=== PATIENT | male | born 1940 | race Caucasian/White ===

== ENCOUNTER 2016-07-31 12:48 | Outpatient (RCR) | payer MEDICARE, OTHER ==
--- OUTSIDE RECORDS SUMMARY | 2016-05-17 09:25 | XMS REPORT | Continuity of Care Document ---
Author Author [facility] Organization [facility] Address Unknown Phone Unavailable Care Team Providers Care Tower Erector Name Role Phone ABDIEL MORGAN PCP Insurance Providers Payer Name Policy Number Subscriber Name Relationship [employer] [id number] Paulino Murray 19 Self / Same As Patient Advance Directives Directive Response Recorded Date/Time Advance Directives No 05/02/16 9:31am Health Care Power of Ream Cutter No 05/02/16 9:31am Organ Donor No 05/02/16 9:31am Problems Active Problems Medical Problem Onset Date Status Atypical chest pain Unknown Acute Fall Unknown Acute Fracture of femur, right, closed Unknown Acute Generalized weakness Unknown Acute Labile blood glucose Unknown Acute Renal failure Unknown Acute Urinary tract infection Unknown Acute Medications Current Home Medications Medication Dose Units Route Directions Days/Qty Instructions Start Date Ipratropium/Albuterol Sulfate (Duoneb) 3 Ml 3 Ml Inhalation Every 6 Hours as needed for Shortness Of Breath 04/11/16 Albuterol/Ipratropium 4 Gm 1 Puff Inhalation Four Times Daily as needed for Shortness Of Breath 04/11/16 Atorvastatin Calcium 80 Mg 80 Mg Oral Bedtime 04/11/16 Carboxymethylcellulose Sodium 15 Ml 1 Drop Each Eye Four Times Daily as needed for Dry Eyes LAST FILLED 08/28/15 04/11/16 Doxazosin Mesylate 8 Mg 8 Mg Oral Bedtime 04/11/16 Gabapentin 600 Mg 600 Mg Oral Three Times A Day 04/11/16 Nicotine Polacrilex 4 Mg 4 Mg Buccal Four Times Daily as needed for Nicotine 04/11/16 Polyethylene Glycol 3350 17 Gm 17 Gm Oral Daily as needed for Constipation 04/11/16 Ranitidine Hcl (Ranitidine) 150 Mg 150 Mg Oral Daily 04/11/16 Insulin Aspart 100 Unit/1 Ml 5 Unit Sub-Q Before Meals 04/11/16 Clopidogrel Bisulfate 75 Mg 75 Mg Oral Daily 04/23/16 Sertraline Hcl 50 Mg 25 Mg Oral Daily TAKES 1/2 OF A (50 MG) TABLET Cyclobenzaprine Hcl 10 Mg 5 Mg Oral Three Times A Day as needed for Muscle Spasms 90 05/03/16 Lisinopril 20 Mg 20 Mg Oral Daily 30 05/03/16 Oxycodone Hcl/Acetaminophen 1 Each 1 Tab Oral Every 6 Hours as needed for Pain 60 05/03/16 Alprazolam 0.5 Mg 1 Mg Oral Every 8HRS as needed for Anxiety 60 Sennosides/Docusate Sodium 1 Each 1 Ea Oral Twice A Day 60 05/03/16 Insulin Determir 1,000 Units/10 Ml 20 Unit Sub-Q Bedtime 1 05/03/16 Silver 480 Ml 0 Oz Topical Daily 1 05/03/16 Insulin Aspart 100 Unit/1 Ml 0 Unit Subcutaneously Before Meals And At Bedtime 1 05/03/16 Past Home Medications Medication Directions Ordered Status Alprazolam 1 Mg Tablet, 1 Mg Oral Bedtime 04/11/16 Discontinued Cyclobenzaprine Hcl 10 Mg Tablet, 10 Mg Oral Three Times A Day as needed for Muscle Spasms 04/11/16 Discontinued Furosemide 20 Mg Tablet, 20 Mg Oral Daily 04/11/16 Discontinued Hydrochlorothiazide 25 Mg Tablet, 25 Mg Oral Daily 04/11/16 Discontinued Ketotifen Fumarate 5 Ml Drops, 1 Drop Each Eye Twice A Day as needed for Allergy Eyes 04/11/16 Discontinued Lidocaine 5 Gm Cream..g., Topical Every 6 Hours as needed for Pain Discontinued Lisinopril 20 Mg Tablet, 10 Mg Oral Daily 04/11/16 Discontinued Nicotine 1 Each Patch.td24, 21 Mg Transderm Daily 04/11/16 Discontinued Oxycodone Hcl 10 Mg Tablet, 10 Mg Oral Every 6 Hours as needed for Pain 04/11 Discontinued Sertraline Hcl 50 Mg Tablet, 50 Mg Oral Daily 04/11/16 Discontinued Aspirin 81 Mg Tablet.dr, 81 Mg Oral Daily 04/11/16 Discontinued Sildenafil Citrate 50 Mg Tablet, 25 Mg Oral As Directed as needed for Erectile Dysfunction 04/11/16 Discontinued Trazodone Hcl 50 Mg Tablet, 75 Mg Oral Bedtime as needed for Sleep 04/11/16 Discontinued Valacyclovir Hcl 500 Mg Tablet, 500 Mg Oral Twice A Day as needed for Breakout 04/11/16 Discontinued Insulin Glargine,Hum.rec.anlog 100 Unit/1 Ml Vial, 15 Unit Sub-Q Bedtime 08/26 Discontinued Oxycodone Hcl 10 Mg Tablet, 10 Mg Oral Every 6 Hours as needed for Pain 04/12 Discontinued Fluconazole 100 Mg Tablet, 100 Mg Oral Daily 04/12/16 Discontinued Alprazolam 1 Mg Tablet, 1 Mg Oral Give Every 6 Hr On Schedule as needed for Anxiety 04/12/16 Discontinued Amoxicillin/Potassium Clav 1 Each Tablet, 1 Each Oral Twice A Day 04/12/16 Discontinued Oxycodone Hcl 10 Mg Tablet, 10 Mg Oral Every 6 Hours 04/23/16 Discontinued Finasteride 5 Mg Tablet, 5 Mg Oral Daily 04/23/16 Discontinued Alprazolam 1 Mg Tablet, 1 Mg Oral Every 6 Hours as needed for Anxiety Discontinued Alprazolam 1 Mg Tablet, 0.5 Mg Oral Three Times A Day as needed for Anxiety 04/25/16 Discontinued Social History Social History Problem Response Recorded Date/Time Recent Foreign Travel No 05/06/2016 1:10pm Type Used Cigarettes 04/26/2016 8:40am Recent Hopitalizations Yes 04/22/2016 10:30pm Hospital Discharge Instructions No hospital discharge instructions. Plan of Care Prescriptions See Medication Section Functional Status No functional status results. Allergies, Adverse Reactions, Alerts Allergen Type Severity Reaction Status Last Updated Finasteride Allergy Unknown Active 04/10/16 metformin ([id number]) Allergy Unknown Active 04/10/16 Immunizations Name Given Type FLU TRIvalent 5 years - Adult 04/27/16 Administered Vital Signs Acute Vital Signs Vital Response Date/Time Temperature (Fahrenheit) 97.9 degrees F (97.6 - 99.5) 05/03/2016 4:43am Temperature (Calculated Celsius) 36.45587 degrees C (36.4 - 37.5) 05/03/2016 4:43am Temperature Source Temporal 05/03/2016 4:43am Pulse Rate (adult) 100 bpm (60 - 90) 05/03/2016 4:43am Respiratory Rate 18 bpm (12 - 24) 05/03/2016 4:43am O2 Sat by Pulse Oximetry 93 % (88 - 100) 05/03/2016 7:49am Blood Pressure 163/79 mm Hg 05/03/2016 4:43am Blood Pressure Mean 107 mm Hg 05/03/2016 4:43am Pain Numeric Pain Scale 4 05/03/2016 9:09am Height (Feet) 5 feet 04/29/2016 3:14pm Height (Inches) 7.00 inches 04/29/2016 3:14pm Height (Calculated Centimeters) 170.552398 cm 04/29/2016 3:14pm Weight (Pounds) 160 pounds 04/29/2016 3:14pm Weight (Ounces) 3.0 oz 04/29/2016 3:14pm Weight (Calculated Grams) 06895.83 gm 04/29/2016 3:14pm Weight (Calculated Kilograms) 72.923600 kilograms 04/29/2016 3:14pm Calculated BMI 25.1 04/29/2016 3:14pm Capillary Refill Capillary Refill Less Than 3 Seconds 04/23/2016 9:05pm Results Laboratory Results Test Name Result Units Flags Reference Collection Date/Time Result Date/ Time Comments White Blood Count 14.0 10^3/uL H 4.3-11.0 04/25/2016 3:45pm 04/26/2016 10 :54am White Blood Count 14.0 X 10^3 H 4.3-11.0 04/25/2016 3:55pm 04/26/2016 9: 11am Red Blood Count 3.53 10^6/uL L 4.35-5.85 04/25/2016 3:45pm 04/26/2016 10: 54am Hemoglobin 9.8 G/DL #L 13.3-17.7 04/25/2016 3:45pm 04/26/2016 10:54am Hematocrit 31 % L 40-54 04/25/2016 3:45pm 04/26/2016 10:54am Mean Corpuscular Volume 86 FL 80-99 04/25/2016 3:45pm 04/26/2016 10: 54am Mean Corpuscular Hemoglobin 28 PG 25-34 04/25/2016 3:45pm 04/26/2016 10 :54am Mean Corpuscular Hemoglobin Concent 32 G/DL 32-36 04/25/2016 3:45pm 10:54am Red Cell Distribution Width 50.3 % H 10.0-14.5 04/25/2016 3:45pm 2015 10:54am Platelet Count 256 10^3/uL 130-400 04/25/2016 3:45pm 04/26/2016 10: 54am Mean Platelet Volume 10.3 FL 7.4-10.4 04/25/2016 3:45pm 04/26/2016 10: 54am Neutrophils (%) (Auto) 72 % 42-75 04/26/2016 5:3204/26/2016 10:42am Lymphocytes (%) (Auto) 19 % 12-44 04/26/2016 5:32am 04/26/2016 10:42am Monocytes (%) (Auto) 7 % 0-12 04/26/2016 5:3204/26/2016 10:42am Eosinophils (%) (Auto) 1 % 0-10 04/26/2016 5:3204/26/2016 10:42am Basophils (%) (Auto) 0 % 0-10 04/26/2016 5:3204/26/2016 10:42am Neutrophils # (Auto) 11.2 X 10^3 H 1.8-7.8 04/26/2016 5:32am 04/26/2016 10:42am Lymphocytes # (Auto) 3.0 X 10^3 1.0-4.0 04/26/2016 5:3204/26/2016 10 :42am Monocytes # (Auto) 1.1 X 10^3 H 0.0-1.0 04/26/2016 5:32am 04/26/2016 10: 42am Eosinophils # (Auto) 0.1 10^3/uL 0.0-0.3 04/26/2016 5:3204/26/2016 10:42am Basophils # (Auto) 0.0 10^3/uL 0.0-0.1 04/26/2016 5:32am 04/26/2016 10: 42am Smear Scan MAN DIFF COMPLETED BY [facility]ING [facility]. 04/26/2016 5:32am 04/26/2016 10:44am Neutrophils % (Manual) 72 % 04/26/2016 5:32am 04/26/2016 10:44am Band Neutrophils 0 % 04/22/2016 9:30pm 04/22/2016 10:10pm Lymphocytes % (Manual) 21 % 04/26/2016 5:32am 04/26/2016 10:44am Monocytes % (Manual) 7 % 04/26/2016 5:32am 04/26/2016 10:44am Eosinophils % (Manual) 4 % 04/22/2016 9:30pm 04/22/2016 10:10pm Basophils % (Manual) 0 % 04/22/2016 9:30pm 04/22/2016 10:10pm Blood Morphology Comment NORMAL 04/22/2016 9:30pm 04/22/2016 10: 10pm Polychromasia SLIGHT 04/26/2016 5:32am 04/26/2016 10:44am Hypochromasia SLIGHT 04/26/2016 5:32am 04/26/2016 10:44am Poikilocytosis SLIGHT 04/26/2016 5:32am 04/26/2016 10:44am Anisocytosis SLIGHT 04/26/2016 5:32am 04/26/2016 10:44am Macrocytosis SLIGHT 04/26/2016 5:32am 04/26/2016 10:44am Prothrombin Time 13.8 SEC 12.2-14.7 04/22/2016 9:30pm 04/22/2016 9: 56pm INR Comment 1.1 0.8-1.4 04/22/2016 9:30pm 04/22/2016 9:56pm INTERPRETIVE DATA SUGGESTED THERAPEUTIC RANGE FOR INR'S: VENOUS THROMBOSIS, PULMONARY EMBOLISM, OR PREVENTION OF SYSTEMIC EMBOLISM (EG. IN ATRIAL FIBRILLATION): 2.0 - 3.0 MECHANICAL PROSTHETIC HEART VALVES: 2.5 - 3.5* *NOTE: INR'S UP TO 4.5 MAY BE NECESSARY IN SELECTED GROUPS OF HIGH RISK PATIENTS. [employer] CONSENSUS CONFERENCE ON ANTITHROMBOTIC THERAPY (2000). Activated Partial Thromboplast Time 32 SEC 24-35 04/22/2016 9:30pm 07/2016 9:56pm Sodium Level 138 MMOL/L 135-145 04/26/2016 5:32am 04/26/2016 10:23am Potassium Level 3.9 MMOL/L 3.6-5.0 04/26/2016 5:32am 04/26/2016 10: 23am Chloride Level 107 MMOL/L 98-107 04/26/2016 5:32am 04/26/2016 10:23am Carbon Dioxide Level 19 MMOL/L L 21-32 04/26/2016 5:32am 04/26/2016 10: 23am Anion Gap 12 MMOL/L 5-14 04/26/2016 5:32am 04/26/2016 10:23am Blood Urea Nitrogen 21 MG/DL H 7-18 04/26/2016 5:32am 04/26/2016 10:23am Creatinine 1.36 MG/DL H 0.60-1.30 04/26/2016 5:32am 04/26/2016 10:23am BUN/Creatinine Ratio 15 04/26/2016 5:32am 04/26/2016 10:23am Estimat Glomerular Filtration Rate 51 04/26/2016 5:32am 04/26/2016 10:23am GFR INTERPRETIVE DATA UNITS FOR ESTIMATED GFR (eGFR): mL/min/1.73 M2 REFERENCE RANGE FOR ESTIMATED GFR (eGFR) eGFR NORMAL eGFR >60 MODERATELY DECREASED eGFR 30-59 SEVERLY DECREASED eGFR 15-29 KIDNEY FAILURE <15 (OR DIALYSIS) Glucose Level 103 MG/DL 70-105 04/26/2016 5:32am 04/26/2016 10:23am Glucometer 246 MG/DL H 70-110 04/25/2016 4:03pm 04/30/2016 4:06pm Calcium Level 9.0 MG/DL 8.5-10.1 04/26/2016 5:32am 04/26/2016 10:23am Total Bilirubin 0.3 MG/DL 0.1-1.0 04/24/2016 4:40am 04/24/2016 6:13am Alkaline Phosphatase 159 U/L H 40-136 04/24/2016 4:40am 04/24/2016 6: 13am Aspartate Amino Transf (AST/SGOT) 16 U/L 5-34 04/24/2016 4:40am 2015 6:13am Alanine Aminotransferase (ALT/SGPT) 11 U/L 0-55 04/24/2016 4:40am 04/24 6:13am Total Protein 6.2 G/DL L 6.4-8.2 04/24/2016 4:40am 04/24/2016 6:13am Albumin 2.9 G/DL L 3.2-4.5 04/24/2016 4:40am 04/24/2016 6:13am Pending Laboratory Results Test Name Collection Date/Time Microbiology Results Procedure Source Result Collection Date/Time Result Date/Time MRSA Screen Nasal MRSA not isolated 04/23/2016 4:10am 04/24/2016 10:29am Procedures Procedure Status Date Provider(s) REPOSITION LEFT UPPER FEMUR WITH INTRAMED FIX, OPEN APPROACH Completed TAYA LANGSTON MD Tracing only of electrocardiogram Completed 04/22/16 ABDIEL CATES DO Color Doppler echocardiography Active 04/23/16 SHERRY ALVARADO MD Encounters Encounter Location Arrival/Admit Date Discharge/Depart Date Attending Provider Discharged Recurring [facility] 05/06/16 1:13pm 9:18am FREDDY WALSH MD Discharged Inpatient [facility] 04/25/16 6:30pm 9:15am KACY CULLEN MD Discharged Inpatient [facility] 04/22/16 9:50pm 6:30pm SHERRY ALVARADO MD
[~2016-07-31 12:48] MED LIST: ACET325T38 PO; ACET325T49 PO; ALPR0.5T7 PO; ALPR1TAB7 PO; AMLO2.5T PO; AMOX-355 PO; ASPI-983 PO; ATOR80TA76 PO; BISA10SU6 RC; CARB15DR78 OU; CLON0.1T PO; CLOP75TA28 PO; CYCL10TA9 PO; CYCL5TAB PO; DOXA8TAB73 PO; FINA5TAB6 PO; FLUC100T6 PO; FURO-125 PO; FURO40TA4 PO; GABA600T2 PO; HYDR25TA4 PO; INSU100I14 SQ; INSU100I29 SQ; INSU100V16 SC; INSU100V16 SQ; INSU100V5 SQ; INSU100V6 SQ; IPRA3AMP IH; IPRA4AER IH; KETO5DRO15 OU; LIDO5CRE20 TP; LISI-552 PO; MAGN400O7 PO; NCT21TD TD; NICO-449 BC; OXYB5TAB9 PO; OXYC-465 PO; OXYC-471 PO; OXYC10TA7 PO; PANT40TA3 PO; POLY17PO6 PO; RANI-515 PO; SENN-20 PO; SENN8.6T68 PO; SERT50TA9 PO; SILD50TA PO; SILV480G TP; SODI44SP4 NS; TRAZ-28 PO; VALA500T PO
[2016-07-31 14:04] LABS: CALCIUM 9.6 MG/DL (8.5-10.1); CREATININE SERUM 1.4 MG/DL (0.60-1.30); POTASSIUM 3.7 MMOL/L (3.6-5.0)
== END 2016-08-15 | disposition home or self-care (01) ==
LOC: WOUNDCARE 12:48
PROVIDERS: ATTEND Surgery
DX: I70.262 Atherosclerosis of native arteries of extremities with gangrene, left leg (principal); I70.245 Atherosclerosis of native arteries of left leg with ulceration of other part of foot; E11.621 Type 2 diabetes mellitus with foot ulcer; L97.524 Non-pressure chronic ulcer of other part of left foot with necrosis of bone; L97.522 Non-pressure chronic ulcer of other part of left foot with fat layer exposed; S91.202A Unspecified open wound of left great toe with damage to nail, initial encounter; J44.9 Chronic obstructive pulmonary disease, unspecified
CPT/HCPCS: 11730; 36415; 80048; 82962; 97597; 99213

== ENCOUNTER → 2016-08-15 | Outpatient (CLI) | payer MEDICARE ==
--- NOTE | 2016-08-15 15:40 | Diagnostic Imaging Report ---
Examination: DEXA scan. Indication: osteopenia Technique: Bone mineral density estimated based on dual energy radiography over the lumbar spine and femoral necks, was performed. Findings: The lumbar spine T-score is -0.8. 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 Impression: The bone mineral density measured in the lumbar spine is at the lower limits of normal.. Dictated by: Dictated on workstation # [id number]
== END ==
LOC: RAD 09:24
PROVIDERS: ATTEND Orthopaedic Surgery
DX: M81.0 Age-related osteoporosis without current pathological fracture (principal)
CPT/HCPCS: 77080

== ENCOUNTER 2016-08-26 13:23 | Outpatient (RCR) | payer MEDICARE | END 2016-09-23 16:00 | disposition home or self-care (01) | LOC: WOUNDCARE 13:23 | PROVIDERS: ATTEND Surgery | DX: I70.262 Atherosclerosis of native arteries of extremities with gangrene, left leg (principal); L97.523 Non-pressure chronic ulcer of other part of left foot with necrosis of muscle; E11.621 Type 2 diabetes mellitus with foot ulcer | CPT/HCPCS: 99213 ==